=== PATIENT | female | born 2000 | race African-American/Black ===

== ENCOUNTER 2024-12-25 16:50 | Emergency (ER) | payer OTHER, SELFPAY ==
[2024-12-25 16:55] VITALS: BP 113/78
[2024-12-25 17:23] VITALS: BMI 21.9
[2024-12-25] MEDS: DECADRON 10 MG PO (18:58)
--- NOTE | 2024-12-25 18:58 | ED.MUSCINJ ---
HPI-Injury
General
Chief Complaint: Musculo-Skeletal Complaint
Source: patient
Exam Limitations: none
Time Seen by Provider: 12/25/24 17:58
Nursing documentation reviewed up to this point in time: agreed with
History of Present Illness-Injury
Initial Injury comments:
24-year-old female with no significant past medical history presents with pain in her left shoulder with popping sensation for the past 2 days after cleaning her been in a 'weird angle.'
Past History
Past History
ED Past Medical History: None
ED Past Surgical History: None
Social History
Tobacco: Non-smoker
Alcohol: Occasional
Personal:
Living: with family
Employment: Employed
Review of Systems
Review of Systems
Allergies reviewed?: Yes
All Other Systems: ROS reviewed and negative except as documented in HPI and ROS
Musculoskeletal: Reports other (Left shoulder pain)
Skin: Reports no symptoms
Neurological: Denies weakness or numbness
Musculoskeletal Injury Exam
Musculoskeletal Injury Exam
Anterior aspect of left shoulder:
Pain with Movement?: Moderate
Tender to palpation?: Moderate
Soft tissue swelling?: None
External deformity and angulation?: None
Joint effusion?: None
Crepitus with movement?: No
Joint instability?: No
Malalignment/deformity?: No
Range of motion: Limited (Mildly limited)
Distal skin color and temperature: normal-warm & good color
Capillary Refill: normal
Normal distal neurovascular exam?: Yes
Phy Exam
Physical Exam
Physical Exam:
PHYSICAL EXAMINATION:
General: no apparent distress, not acutely ill
Neuro: alert and oriented.
Psychiatric: well kept. interactive and cooperative
Musculoskeletal: Moves with ease
Skin: Warm, pink.
Injury Course
Orders/Labs/Results
Orders:
Orders
12/25/24 16:58
Shoulder, Left 2 View CR [CR Shoulder - Left Min 2 View*] Urgent
Comment:
Reason For Exam: pain with movement
12/25/24 18:47
Dexamethasone [Decadron] 10 mg PO NOW STA
MDM/Problems Addressed
Differential Diagnosis Includes:
sprain, bursitis, tendinitis, calcific bursitis
MDM/Problems Addressed:
24-year-old female with no significant past medical history presents with pain in her left shoulder with popping sensation for the past 2 days after cleaning her been in a 'weird angle.'
X-ray left shoulder shows no acute abnormality. History and exam is consistent with a shoulder bursitis.
Given a dose of Decadron here
Prescription for prednisone 40 mg daily x 3 days to start tomorrow sent to her pharmacy
*Critical Care Note
Total Time (30-74mins, 75-104mins- exclusive of procedures): Not Applicable
ED Attending Note
-
Portions of this chart may have been created with voice recognition software.� Occasional wrong word or��sound alike� substitutions may have occurred due to the inherent limitations of voice recognition software.
Discharge Plan
Departure
Patient Disposition: Home (Routine Discharge)
Date of Disposition: 12/25/24
Time of Disposition: 18:47
Patient with high blood pressure during this ER visit?: No
Condition: Good
Discharge Problem:
Acute bursitis of left shoulder
Instructions: Shoulder Bursitis Exercises, Bursitis - ED discharge instructions
Prescriptions:
New
prednisone 20 mg tablet
40 mg PO DAILY Qty: 6 0RF
Referrals:
Jarad Ramires MD [Active, Orthopedics]
UNKNOWN - PT DOES,NOT KNOW [Family Provider]
Activity Restrictions/Additional Instructions:
As we discussed, ibuprofen 600 mg, with food, every 6 hours as needed for pain.
You were given a dose of steroid, Decadron here today.
I sent a prescription to your pharmacy for prednisone which is also a steroid to take 40 mg a day for the next 3 days.
You may alternate cold and warm heating pad compresses and stick with whichever feels better.
Rest the arm for a day or 2 and then start the exercises provided
See the orthopedic doctor if your shoulder is not a lot better in 5 days or not 100% better in 3 weeks.
Interventions
Interventions:
*Risk Screen - Suicide Last Done: 12/25/24 16:57
*General Assessment Last Done: 12/25/24 17:23
*Neglect/Abuse Screening Last Done: 12/25/24 16:57
*ED COVID-19 Vaccine History Last Done: 12/25/24 17:23
*Nursing Disposition Last Done: 12/25/24 18:51
ED-Musculoskeletal Assessment Last Done: 12/25/24 17:23
Discharge Date and Time
Discharge Date/Time: 12/25/24 19:01
Print Language: [id number]
== END 2024-12-25 19:01 | disposition home or self-care (01) ==
LOC: EMR 16:50
PROVIDERS: EMERGENCY PHYSICIAN Emergency Medicine
DX: M75.52 Bursitis of left shoulder (principal)
CPT/HCPCS: 99283; 73030